=== PATIENT | male | born 1975 | race Caucasian/White ===

== ENCOUNTER 2017-01-29 17:08 | Emergency (ER) | payer OTHER ==
[2017-01-29 17:30] VITALS: BP 123/76; PULSE 74; TEMP 98.4; BMI 30.7
--- NOTE | 2017-01-29 17:48 | PDOC ---
History of Present Illness - General Chief Complaint: Ear Problem Stated Complaint: EAR PROBLEM Time Seen by Provider: 01/29/17 17:41 History Source: Patient Exam Limitations: No Limitations - History of Present Illness Initial Comments: 01/29/17 18:51 Chief complaint: right ear discomfort today History of present illness: Patient is a 41-year-old male with a history of hyperlipidemia here today complaining of right ear discomfort that is currently a 4 out of 10. Patient also reports that his hearing is slightly less in his right ear today. Patient denies any nasal congestion, cough, any fever or any other symptoms. Denies any discharge from right ear. Timing/Duration: getting worse (right ear) Severity: moderate (right ear ) Associated Symptoms: reports: other (right ear ) Past History - Past Medical History Allergies/Adverse Reactions: Allergies Allergy/AdvReac Type Severity Reaction Status Date / Time No Known Allergies Allergy Verified 01/29/17 17:27 Home Medications: Ambulatory Orders Ibuprofen [Motrin -] 400 mg PO Q6H PRN #18 tablet 01/29/17 Hypercholesterolemia: Yes - Immunization History Immunization Up to Date: Yes - Psycho/Social/Smoking Cessation Hx Anxiety: No Suicidal Ideation: No Smoking History: Never smoked Hx Alcohol Use: No Drug/Substance Use Hx: No Substance Use Type: None Review of Systems - Review of Systems Able to Perform ROS?: Yes Constitutional: No: Symptoms Reported HEENTM: Yes: Ear Pain (right ear ), Hearing Loss (minimal rt. ear ) Respiratory: No: Symptoms reported Cardiac (ROS): No: Symptoms Reported ABD/GI: No: Symptoms Reported : No: Symptoms Reported Musculoskeletal: No: Symptoms Reported Integumentary: No: Symptoms Reported Neurological: No: Symptoms reported *Physical Exam - Vital Signs Last Vital Signs Temp Pulse Resp BP Pulse Ox 98.4 F 74 19 123/76 97 01/29/17 17:27 01/29/17 17:27 01/29/17 17:27 01/29/17 17:27 01/29/17 17:27 - Physical Exam General Appearance: Yes: Appropriately Dressed HEENT: positive: TMs Normal (left ), Hearing Grossly Normal (b/l ), Other (rt. cerumen impaction ). negative: Pharyngeal Erythema, Tonsillar Exudate, Tonsillar Erythema, Nasal Congestion, Rhinorrhea, TM Bulging, TM Dull, TM Erythema Neck: negative: Tender, Lymphadenopathy (R), Lymphadenopathy (L), Tender lateral Respiratory/Chest: positive: Lungs Clear, Normal Breath Sounds. negative: Chest Tender, Respiratory Distress Cardiovascular: positive: Regular Rhythm, Regular Rate, S1, S2 Integumentary: positive: Normal Color Procedures - Consent Consent obtained: From Patient - Additional Procedures Progress: 01/29/17 18:53 Ear irrigated with warm water with small amount of hydrogen peroxide with small amount of cerumen return ear reexamined no TM bulging or erythema, no cerumen impaction remaining Medical Decision Making - Medical Decision Making 01/29/17 18:52 Patient is a 41-year-old male with a history of hyperlipidemia here today complaining of right ear discomfort that is currently a 4 out of 10. Patient also reports that his hearing is slightly less in his right ear today. Patient denies any nasal congestion, cough, any fever or any other symptoms. Denies any discharge from right ear. rt. ear cerumen impaction PLAN: rt. ear irrigated with small amount of cerumen removed, decreased pain, hearing improved Follow up with ENT *DC/Admit/Observation/Transfer Diagnosis at time of Disposition: Impacted cerumen, right ear - Discharge Dispostion Disposition: HOME Condition at time of disposition: Stable - Referrals Referrals: Dennis Delarosa MD [Staff Physician] - - Patient Instructions Additional Instructions: Follow-up with Dr. Delarosa if ear pain persist Take ibuprofen as needed as directed by intervention teacher for pain Return to emergency room if pain worsens or any fever or any new symptoms develop Patient voiced understanding of discharge instructions and all questions were answered Seguimiento con el Dr. Delarosa si el dolor de odo persiste [facility] ibuprofeno segn sea necesario segn las instrucciones del fabricante para el dolor Regreso a la ariadna de emergencias si el dolor empeora o se presenta fiebre o s ntomas nuevos Comprensin del paciente sobre las instrucciones de mami y todas las preguntas fueron contestadas
== END 2017-01-29 19:04 | disposition home or self-care (01) ==
LOC: JERFT 17:08
PROC: 3E1B78Z Irrigation of Ear using Irrigating Substance, Via Natural or Artificial Opening (ICD-10-PCS; principal; 2017-01-29)
DX: H61.21 Impacted cerumen, right ear (principal)
CPT/HCPCS: 99281-25